=== PATIENT | female | born 1995 | race Caucasian/White ===

== ENCOUNTER 2016-03-12 10:33 | Emergency (ER) | payer OTHER ==
[2016-03-12 10:51] VITALS: BP 129/80
== END 2016-03-12 13:06 | disposition left against medical advice (07) ==
LOC: ED 10:33
DX: R05 Cough (principal)

== ENCOUNTER 2018-01-12 12:12 | Emergency (ER) | payer OTHER ==
--- NOTE | 2018-01-12 13:38 | UC ---
Complaint Female HPI - HPI Summary HPI Summary: 22 yo female presents with positive test. She tells me that her LMP was on 12/06. She had unprotected sexual intercourse on 12/06, 12/10, and 12/18. She missed her period the first week of this month and had some lower abdominal cramping, thus took a test on 01/09 that was positive. On 01/10 she had increased cramping and spotting that lasted until yesterday 01/11. Today she only has mild cramping - no more vaginal bleeding. She tells me that she has a hx of abnormal periods, ovarian cysts, pelvic pain, and uterine fibroids - so is unsure if this is a uterine abnormality causing a false positive test or if she is actually . She denies fever, chills, SOB, chest pain, abdominal pain, n/v, dysuria. - History Of Current Complaint Chief Complaint: UCGU Stated Complaint: PERSONAL Time Seen by Provider: 01/12/18 13:37 Hx Obtained From: Patient Hx Last Menstrual Period: december 10 Severity Currently: None Pain Intensity: 0 - Allergies/Home Medications Allergies/Adverse Reactions: Allergies Allergy/AdvReac Type Severity Reaction Status Date / Time No Known Allergies Allergy Verified 01/12/18 13:18 Home Medications: Home Medications Venlafaxine HCl [Effexor XR-] 37.5 mg PO DAILY 01/12/18 [History Confirmed 01/12] PMH/Surg Hx/FS Hx/Imm Hx - Additional Past Medical History Additional PMH: Ovarian cysts Uterine fibroids Psychological History: Anxiety, Depression - Surgical History Surgical History: None - Family History Known Family History: Positive: None - Social History Occupation: Employed Full-time Lives: With Family Alcohol Use: Rare Substance Use Type: Marijuana Substance Use Comment - Amount & Last Used: hx of use in the past Smoking Status (MU): Never Smoked Tobacco When Did the Patient Quit Smoking/Using Tobacco: EXPOSED TO 2ND HAND SMOKE THROUGHOUT CHILDHOOD Review of Systems All Other Systems Reviewed And Are Negative: Yes Constitutional: Positive: Negative Skin: Positive: Negative Respiratory: Positive: Negative Cardiovascular: Positive: Negative Gastrointestinal: Positive: Negative Genitourinary: Positive: Other - Pelvic cramping. Vaginal bleeding Motor: Positive: Negative Neurovascular: Positive: Negative Neurological: Positive: Negative Physical Exam - Summary Physical Exam Summary: GENERAL: NAD. WDWN. No pain distress. SKIN: No rashes, sores, lesions, or open wounds. NECK: Supple. Nontender. No lymphadenopathy. CHEST: CTAB. No r/r/w. No accessory muscle use. Breathing comfortably and in no distress. CV: RRR. Without m/r/g. Pulses intact. Cap refill <2seconds ABDOMEN: Soft. NTTP. No distention or guarding. No CVA tenderness. Bowel sounds present NEURO: Alert. PSYCH: Age appropriate behavior. Triage Information Reviewed: Yes Vital Signs: Initial Vital Signs Temp 98.6 F 01/12/18 13:12 Pulse 90 01/12/18 13:12 Resp 14 01/12/18 13:12 BP 148/77 01/12/18 13:12 Pulse Ox 100 01/12/18 13:12 Laboratory Tests 01/12/18 01/12/18 13:40 13:48 POC Urine Color Yellow POC Urine Clarity Clear POC Urine pH 6.0 POC Ur Specif [place] 1.025 POC Urine Protein Negative POC Ur Glucose (UA) Negative POC Urine Ketones Negative POC Urine Blood Negative POC Urine Nitrite Negative POC Urine Bilirubin Negative POC Urine Urobilinogen 0.2 POC U Leukocyte Esteras Negative POC Ur Test Positive A Vital Signs Reviewed: Yes Complaint Female Dx - Course Course Of Treatment: US: IMPRESSION: 1. FIBROID UTERUS. 2. NO INTRAUTERINE GESTATION IS IDENTIFIED. THE DIFFERENTIAL INCLUDES EARLY INTRAUTERINE. GESTATION, MISSED , OR ECTOPIC . RECOMMEND CORRELATION WITH SERIAL. BETA-HCG LEVELS AND FOLLOW-UP IMAGING. Given her symptoms and history , I strongly suspect this was a missed . Draw for Quant HCG today. Spoke with Dr. Kirby's office and pt has been seen there in the past - they will review her records from today's visit and call pt with an appt. Advised pt that this HCG needs to be repeated in 2 days and [facility], or if Dr. Kirby is able to see her. This will determine further action. If she develops severe pain, bleeding, fever, or new symptoms - should go to the ER. Pt voiced understanding and is in agreement with the plan. - Differential Dx/Diagnosis Provider Diagnoses: Missed . Positive test Discharge - Sign-Out/Discharge Documenting (check all that apply): Patient Departure All imaging exams completed and their final reports reviewed: Yes - Discharge Plan Condition: Stable Disposition: HOME Patient Education Materials: Ectopic (DC), Miscarriage (ED) Referrals: Margo Verdugo MD [Primary Care Provider] - Prisca Kirby MD [Medical Doctor] - As Soon As Possible Additional Instructions: If you develop a fever, shortness of breath, chest pain, new or worsening symptoms - please call your PCP or go to the ED. Your blood pressure was high at todays visit. Please see your primary provider within 4 weeks for recheck and re-evaluation. 1) Please call Dr. Kirby tomorrow at the number below to schedule a follow up appointment for 01/14. - Billing Disposition and Condition Condition: STABLE Disposition: Home
[2018-01-12 16:04] VITALS: BP 133/80
--- NOTE | 2018-01-13 11:51 | UC ---
- Progress Note Progress Note: PLS CALL PT. QUANT HCG ELEVATED 500.02 MIU/ML. MAKE SURE SHE HAS PLANS FOR RECHECK TOMORROW AND HAS CALLED [employer] FOR F/U INSTRUCTED. - SUE SMALLS MD Discharge - Sign-Out/Discharge Documenting (check all that apply): Post-Discharge Follow Up All imaging exams completed and their final reports reviewed: Yes - Discharge Plan Condition: Stable Disposition: HOME Patient Education Materials: Ectopic (DC), Miscarriage (ED) Referrals: Margo Verdugo MD [Primary Care Provider] - Prisca Kirby MD [Medical Doctor] - As Soon As Possible Additional Instructions: If you develop a fever, shortness of breath, chest pain, new or worsening symptoms - please call your PCP or go to the ED. Your blood pressure was high at todays visit. Please see your primary provider within 4 weeks for recheck and re-evaluation. 1) Please call Dr. Kirby tomorrow at the number below to schedule a follow up appointment for 01/14. - Billing Disposition and Condition Condition: STABLE Disposition: Home
== END 2018-01-12 16:03 | disposition home or self-care (01) ==
LOC: UCEAST 12:12
DX: O02.1 Missed abortion (principal)
CPT/HCPCS: 36415; 76830; 81003; 84702; 99212; G0463